=== PATIENT | female | born 1995 | race Caucasian/White ===

== ENCOUNTER 2018-02-03 15:57 | Emergency (ER) | payer OTHER ==
[2018-02-03 16:04] VITALS: RESP 18
--- NOTE | 2018-02-03 16:57 | ED ---
Chest Pain HPI - General Chief Complaint: Chest Pain Stated Complaint: chest pain-1 week Time Seen by Provider: 02/03/18 16:15 Source: patient, RN notes reviewed, old records reviewed Mode of arrival: ambulatory Limitations: no limitations - History of Present Illness Initial Comments: 33-year-old female presents emergency department chief complaint of chest pain past week. Patient has history of hepatitis C. Patient states the pain is worse after eating occasionally. She states the pain radiates towards her shoulder. She denies any specific shortness of breath. No history of leg swelling. Patient does have history of anxiety. - Related Data Home Medications Medication Instructions Recorded Confirmed Ibuprofen [Advil] 200 mg PO Q8HR PRN 02/03/18 02/03/18 Previous Rx's Medication Instructions Recorded Famotidine [Pepcid] 20 mg PO BID #20 tablet 02/03/18 Allergies Allergy/AdvReac Type Severity Reaction Status Date / Time No Known Allergies Allergy Verified 02/03/18 16:09 Review of Systems ROS Statement: Those systems with pertinent positive or pertinent negative responses have been documented in the HPI. ROS Other: All systems not noted in ROS Statement are negative. EKG Findings - EKG Comments: EKG Findings:: EKG shows normal sinus normal EKG noted. Ventricular rate of 64 bpm. Was 118 ms. QRS duration 80 ms. QT QTc is 418/431 ms. No evidence of ST elevation or T-wave inversion. Past Medical History Additional Past Medical History / Comment(s): hep C History of Any Multi-Drug Resistant Organisms: None Reported Past Surgical History: No Surgical Hx Reported Past Psychological History: Bipolar, Depression Smoking Status: Current every day smoker Past Alcohol Use History: None Reported Past Drug Use History: None Reported General Exam - General Exam Comments Initial Comments: This is a 53-year-old female. Alert and oriented. Patient appears in no significant distress. Limitations: no limitations General appearance: alert, in no apparent distress Head exam: Present: atraumatic, normocephalic, normal inspection Eye exam: Present: normal appearance, PERRL, EOMI. Absent: scleral icterus, conjunctival injection, periorbital swelling ENT exam: Present: normal exam, mucous membranes moist Neck exam: Present: normal inspection. Absent: tenderness, meningismus, lymphadenopathy Respiratory exam: Present: normal lung sounds bilaterally. Absent: respiratory distress, wheezes, rales, rhonchi, stridor Cardiovascular Exam: Present: regular rate, normal rhythm, normal heart sounds. Absent: systolic murmur, diastolic murmur, rubs, gallop, clicks GI/Abdominal exam: Present: soft, normal bowel sounds. Absent: distended, tenderness, guarding, rebound, rigid Extremities exam: Present: normal inspection, full ROM, normal capillary refill. Absent: tenderness, pedal edema, joint swelling, calf tenderness Back exam: Present: normal inspection Neurological exam: Present: alert, oriented X3, CN II-XII intact Psychiatric exam: Present: normal affect, normal mood Skin exam: Present: warm, dry, intact, normal color. Absent: rash Course Vital Signs 02/03/18 16:02 Temperature 98.1 F Pulse Rate 98 Respiratory 18 Rate Blood Pressure 131/86 O2 Sat by Pulse 100 Oximetry Disposition Clinical Impression: Elevated liver enzymes, Chest pain Disposition: HOME SELF-CARE Condition: Good Instructions: Chest Pain (ED), Gastritis (ED) Additional Instructions: Patient advised to a follow-up with primary care physician. Patient should return to ED if any alarming signs or symptoms occur. Prescriptions: Famotidine [Pepcid] 20 mg PO BID #20 tablet Is patient prescribed a controlled substance at d/c from ED?: No Referrals: Tina Howard MD [Primary Care Provider] - 1-2 days Time of Disposition: 18:47
[2018-02-03 17:20] LABS: Basophils # (A) 0.1 k/uL (0-0.2); Basophils % (A) 1 %; Eosinophils # (A) 0.3 k/uL (0-0.7); Eosinophils % (A) 4 %; HCT 45.7 % (34.0-46.0); HGB 14.7 gm/dL (11.4-16.0); Lymphocytes # (A) 2.5 k/uL (1.0-4.8); Lymphocytes % (A) 36 %; MCH 30.6 pg (25.0-35.0); MCHC 32.1 g/dL (31.0-37.0); MCV 95.3 fL (80.0-100.0); Mean Platelet Volume 7.1; Monocytes # (A) 0.5 k/uL (0-1.0); Monocytes % (A) 7 %; Neutrophils # (A) 3.4 k/uL (1.3-7.7); Neutrophils % (A) 50 %; Platelet Count 247 k/uL (150-450); RDW 12.8 % (11.5-15.5); WBC 6.9 k/uL (3.8-10.6)
[2018-02-03 17:27] LABS: Partial Thromboplastin Time 27.3 sec (22.0-30.0); Prothrombin Time 9.6 sec (9.0-12.0)
[2018-02-03 17:32] LABS: ALT 100 U/L (9-52); AST 64 U/L (14-36); Albumin 4.9 g/dL (3.5-5.0); Alkaline Phosphatase 62 U/L (38-126); Amylase 74 U/L (30-110); Anion Gap 8 mmol/L; Blood Urea Nitrogen 11 mg/dL (7-17); Carbon Dioxide 32 mmol/L (22-30); Chloride 102 mmol/L (98-107); Glucose 77 mg/dL (74-99); Lipase 120 U/L (23-300); Magnesium 1.9 mg/dL (1.6-2.3); Potassium 4.6 mmol/L (3.5-5.1); Sodium 142 mmol/L (137-145); Total Bilirubin 0.4 mg/dL (0.2-1.3); Total Protein 8.2 g/dL (6.3-8.2)
[2018-02-03 17:39] LABS: Creatine Kinase 48 U/L (30-135)
[2018-02-03 17:52] LABS: Creatine Kinase MB 0.3 ng/mL (0.0-2.4); Troponin I <0.012 ng/mL (0.000-0.034)
--- NOTE | 2018-02-03 18:13 | US ---
EXAMINATION TYPE: US gallbladder DATE OF EXAM: 02/03/2018 COMPARISON: NONE CLINICAL HISTORY: pain. Chest pain, epigastric pain after meals; Hepatitis C per patient; patient anibal lopez last ate this AM. EXAM MEASUREMENTS: Liver Length: 15.9 cm Gallbladder Wall: 0.2 cm CBD: 0.4 cm Right Kidney: 10.2 x 6.0 x 4.1 cm Pancreas: wnl Liver: wnl Gallbladder: partially contracted gallbladder Evidence for sonographic Whitfield's sign: no CBD: wnl Right Kidney: wnl IMPRESSION: Normal right upper quadrant abdominal sonogram. No gallstones or dilated ducts.
[2018-02-03] MEDS ORDERED: KETOROLAC 30 MG/ML 1 ML VIAL IVP STA (18:16)
--- NOTE | 2018-02-03 18:42 | XR ---
EXAMINATION TYPE: XR chest 2V DATE OF EXAM: 02/03/2018 COMPARISON: NONE HISTORY: Chest pain TECHNIQUE: Frontal and lateral views of the chest are obtained. FINDINGS: Heart and mediastinum are normal. Lungs are clear. Diaphragm is normal. Bony thorax and so ft tissues appear normal. IMPRESSION: Normal chest
[2018-02-03 18:56] VITALS: BP 105/67; PULSE 61; TEMP 98.3
== END 2018-02-03 19:32 | disposition home or self-care (01) ==
LOC: EC 15:57
DX: R07.9 Chest pain, unspecified (principal); R74.8 Abnormal levels of other serum enzymes; F17.200 Nicotine dependence, unspecified, uncomplicated; Z86.19 Personal history of other infectious and parasitic diseases
CPT/HCPCS: 36415; 71046; 76705; 80053; 82150; 82550; 82553; 83690; 83735; 84484; 85025; 85610; 85730; 93005; 96374; 99285